=== PATIENT | male | born 1995 | race Caucasian/White ===

== ENCOUNTER 2018-12-09 17:07 | Inpatient (IN) | payer OTHER ==
[~2018-12-09] VITALS: Ht 170.2 cm; Wt 66.0 kg
[2018-12-09 17:11] VITALS: Ht 170.2 cm; Wt 66.0 kg
--- NOTE | 2018-12-09 17:22 | NUR ---
PT BIBA BECAUSE G-TUBE WAS DISLODGED WHILE PATIENT WAS IN PHYSICAL THERAPY. PATIENT IS CURRENTLY AT BEDSIDE IN [facility], BREATHING IS LABORED HE ALSO HAS A TRACH TUBE. LUNG SOUNDS HAS AUDIBLE WHEEZING BILATERALLY. PATIENT REQUESTED A SUCTION, STS HE IS ABLE TO SUCTION MANUALLY. STS HAVING A PAIN OF 3/10 IN THE ABDOMINAL REGION. AWAITING MSE
[2018-12-09] MEDS ORDERED: COLACE100 MG GT (18:04)
[2018-12-09] MEDS ORDERED: PROCTOSOL-HC2.5% TOP (18:05)
[2018-12-09] MEDS ORDERED: APAP500 MG GT (18:05)
[2018-12-09] MEDS ORDERED: ATIVAN0.5 M1 GT (18:06)
[2018-12-09 18:18] LABS: BASOPHIL % 0.3 % (0-2); PLATELET COUNT 310 x10^3mcL (130-400); RED CELL DISTRIBUTION WIDTH 13.1 % (11.5-14.5)
--- NOTE | 2018-12-09 18:32 | NUR ---
PT RESTING AT BEDSIDE IN NAD. RESIDENT AT BEDSIDE
[2018-12-09 18:34] LABS: CARBON DIOXIDE 32.6 mmol/L (21-32); CHLORIDE SERUM 103 mmol/L (98-107); CREATININE SERUM 0.3 mg/dL (0.7-1.3); GFR1 > 60 mL/min; GLUCOSE SERUM 94 mg/dL (74-106); POTASSIUM SERUM 3.9 mmol/L (3.5-5.1); SODIUM SERUM 134 mmol/L (136-145)
--- NOTE | 2018-12-09 18:34 | NUR ---
XRAY AT BEDSIDE
[2018-12-09 18:39] LABS: ALBUMIN 3.6 g/dL (3.4-5.0); ALKALINE PHOSPHATASE 111 U/L (46-116); ALT/SGPT 52 U/L (16-63); AST/SGOT 20 U/L (15-37); BILIRUBIN TOTAL 0.27 mg/dL (0.20-1.00); TOTAL PROTEIN, SERUM 8.1 g/dL (6.4-8.2)
--- NOTE | 2018-12-09 18:40 | NUR ---
REPORT OFF TO AMY ANSARI
[2018-12-09 18:49] LABS: MAGNESIUM 2.1 mg/dL (1.8-2.4); PHOSPHOROUS 3.3 mg/dL (2.5-4.9)
[2018-12-09 19:39] VITALS: BP 127/72
--- NOTE | 2018-12-09 19:56 | NUR ---
PATIENT WAS BEING ADMITTED BY [facility].[place] APPLIED.
--- NOTE | 2018-12-09 20:01 | NUR ---
RECEIVED PT FROM ER. PT ADMIT FOR G TUBE DISLODGED, PT IS A/O X4, VERBAL REPSONSIVE, ABLE TO TELL WHAT HE NEEDS. PT HAS TRACH, PO2 98% IN ROOM AIR. LUNG SOUND DIM JUNIOR, DENY ANY SOB AT THIS TIME BUT PT CONSTANTLY COUGH WITH YELLOW SECRETION. SUCTION AND TRACH CARE PROVIDED. PT IS ON TELE 3, NSR, DENY ANY CHEST PAIN, BOWEL SOUND PRESENT ALL 4 QUADRANTS, NO DISTETNION, LEFT UPPER QUADRANT ABD G TUBE DISLODGED SITE. COVER WITH DRY DRESSING, PEDAL PULSE PRESENT BOTH FEET, NO EDEMA, IV AT LEFT HAND, NO LEAKING, NO INFILTRATION. ALL ADLS ASSIST, ALL NEED MET, CALL LIGHT IN REACH, WILL CONTINUE TO MONITOR.
[2018-12-09 20:35] VITALS: BP 119/78
--- NOTE | 2018-12-09 21:00 | NUR ---
PATIENT SUCTIONED,SCANTY CLEAR SECRETION,HAS TRACH FROM WHERE HE CAME FROM,PATIENT VERBALIZED NEEDS.MAIN REASON HE IS HERE.GT IS CLOGGED.STOMA HAS DRESSING OVER IT.ER NOT ABLE TO REPLACED,SUNIL RUTHERFORD SAYS DR Linda HARP CONSULT.
[2018-12-10] VITALS (7 sets, daily range): BP systolic 107–135; BP diastolic 68–87
--- NOTE | 2018-12-10 02:17 | NUR ---
PATIENT WIDE AWAKE,REMINDED HE CAN TURN OFF TV/LIGHT.ATIVAN 0.5 MG GIVEN WITH LITTEL WATER.
--- NOTE | 2018-12-10 06:14 | NUR ---
PATIENT RHYTHM.AFIB/FLUTTER ON TELE,PITER NOTIFIED DR BARBER.WILL ORDER EKG.
[2018-12-10 06:15] LABS: BASOPHIL % 0.6 % (0-2); PLATELET COUNT 251 x10^3mcL (130-400); RED CELL DISTRIBUTION WIDTH 12.8 % (11.5-14.5)
--- NOTE | 2018-12-10 06:19 | NUR ---
PATIENT STILL NEED UA,BUTTON INSPECTOR DUMPED IT TWICED.IVF INFUSING.WILL ENDORSE TO NEXT SHIFT.
[2018-12-10 06:44] LABS: CALCIUM 9.7 mg/dL (8.5-10.1); CARBON DIOXIDE 30.8 mmol/L (21-32); CHLORIDE SERUM 106 mmol/L (98-107); CREATININE SERUM 0.4 mg/dL (0.7-1.3); GFR1 > 60 mL/min; GLUCOSE SERUM 87 mg/dL (74-106); POTASSIUM SERUM 3.6 mmol/L (3.5-5.1); SODIUM SERUM 144 mmol/L (136-145)
--- NOTE | 2018-12-10 07:12 | NUR ---
RECEIVED PATIENT FROM OFFSET MACHINE OPERATOR NURSE. PATIENT IS AWAKE AND ALERT, DROWSY. TELE#3, SR, HR 77, DENIES CHEST PAIN. PER OFFSET MACHINE OPERATOR NURSE PATIENT HAD EPISODE OF A-FIB/FLUTTER: EKG READS SR. PATIENT HAS TRACHEOSTOMY, NICOLE. DRESSING CDI. SHILEY 6 AT BEDSIDE. SUCTION AT BEDSIDE. PER OFFSET MACHINE OPERATOR NURSE. PATIENT IS ABLE TO SELF SUCTION. RT PROTOCOL, WILL MONITOR. WALKER AT BEDSIDE, FALL PREC IN PLACE. G-TUBE SITE DRESSING CDI: PATIENT ADMITTED FOR DISLODGED G-TUBE. IV NOTED TO , IVF INFUSING WELL ORDERED, NO S/S REDNESS OR EDEMA AT SITE. CALL LIGHT WITHIN EASY REACH. WILL CONTINUE PLAN OF CARE.
[2018-12-10 11:45] LABS: microscopic required? NO
--- NOTE | 2018-12-10 12:03 | NUR ---
PATIENT TAKEN DOWN TO GI LAB AT THIS TIME.
[2018-12-10 12:06] LABS: UA SPECIFIC GRAVITY 1.025 (1.005-1.035); urine erythrocyte NEGATIVE (NEGATIVE)
--- NOTE | 2018-12-10 14:00 | NUR ---
PT BACK FROM PROCEDURE. AA/OX4. NO S/S OF ACUTE DISTRESS. NO SOB ON ROOM AIR. O2 SAT 97%. RR EVEN/UNLABORED. TRACH IN PLACE. VS STABLE. DRESSING TO ABD. CDI. NO CHEST PAIN. NO N/V. BED IN LOW POSITION. CALL LIGHT WITHIN REACH. WILL ENDORSE TO PRIMARY RN.
--- NOTE | 2018-12-10 14:51 | NUR ---
1. Recommend continuing NPO per MD orders. 2. Once new Gtube is in place, restart TF Vital AF 1.2 at 70ml/hr (goal rate x 24 hrs) FWF 160ml Q6H via GT. EN regimen will provide: 2016 kcal, 126 gm protein and 2002 ml free water daily. Which will meet: 102% of upper end of estimated calorie needs and 159% of upper end of estimated protein needs. RD rec endorsed to AMY Hodgson.
--- NOTE | 2018-12-10 14:51 | NUR ---
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 PSHx: Tracheostomy., Left ankle fracture surgical repair. Labs: 12/10 CRE 0.4 L, RBC 3.97 L, H/H 12.5 L/36 L Meds: colace, NaCl IV, zofran, Nutrition Support: NPO Residuals: none I and O: 12/10 1000/250 +750ml, IV total intake 800ml per 24 hrs. Ht: 5'7 Wt: 146 lb, 66 kg BMI: 22.8 kg/m2 (normal) IBW: 148 lb, 67 kg %IBW: 99 UBW: Age: 23 yrs old/Male Food Allergies: Skin: L upper abd, GT site dislodged. Moises: 21 Edema: none GI: no GI distention/discomfort, bowel sounds active. Last BM 12/08/18, formed Trigger received for EN support and appears underweight/malnourished. Per H&P, with PMH of West Nile fever and chronic respiratory failure was admitted with cc of dislodged G-tube. Pt is a resident of [facility] where he is currently undergoing PT. During regular PT session PT specialist applied belt over his stomach to assist with ambulation when belt came in close contact with G-tube and dislodged it. At [facility] they tried to place the tube back in but failed to do so and brought pt to the hospital. Pt is ambulating with walker, tracheostomy due to chronic respiratory failure, pt stated that he used to be ventilator-dependent but was taken of ventilation 3 weeks ago and only requires intermittent trach suction now. 12/10 MD notes: Patient will likely stay until tomorrow to ensure that the G tube is able to be used. Pt seen, +trach. Per RN, s/p PEG placement. Per hard chart review, pt receives TF in [facility]: Vital AF 1.2 at 95ml/hr x 20 hrs, FWF 250ml Q8H via GT. Per bed huddle discussion w/ Dr. Tacos RD to provide same formula as SNF. Problem with: N: no V: no D: no C: no Problems with: Chewing: yes Swallowing: yes Current appetite: n/a Recent wt change: none %wt change: n/a Vitamin/Supplement use: colace Special diet at home: TF Vital AF 1.2 at 95ml/hr x 20 hrs. Physical activity: none Education: is not provided during this visit. Estimated Nutritional Needs Based on actual body weight 66 kg Energy: 3455-1570 kcal/d (25-30 kcal/kg for maintenance) Protein: 66-79 g/d (1-1.2g/kg for maintenance) Fluid: 1956-2033 ml/d (1 ml/kcal) or per doctor Nutrition Diagnosis 1. Inadequate EN intake r/t GT malfunction AEB need for new GT placement and NPO status. Intervention 1. Recommend continuing NPO per MD orders. 2. Once new Gtube is in place and medically appropriate , restart TF Vital AF 1.2 at 70ml/hr (goal rate x 24 hrs) FWF 160ml Q6H via GT. EN regimen will provide: 2016 kcal, 126 gm protein and 2002 ml free water daily. Which will meet: 102% of upper end of estimated calorie needs and 159% of upper end of estimated protein needs. Monitor/Evaluate Goal: TF intake at least 75% estimated needs Monitor: TF tolerance, Labs, GI function, weights F/U in 2-3 days as high risk 12/12-12/13
--- NOTE | 2018-12-10 15:28 | NUR ---
PER DR HARP PATIENT OKAY TO START ON TUBE FEEDING AT THIS TIME. DR JORGENSEN NOTIFIED AND TO ADD ORDER FOR TUBE FEEDING. WILL FOLLOW UP.
--- NOTE | 2018-12-10 15:42 | NUR ---
PATIENT C/O PAIN AT G-TUBE SITE. DR FRIAS NOTIFIED. WILL FOLLOW UP.
--- NOTE | 2018-12-10 17:40 | NUR ---
G-TUBE SITE ASSESSED. PATENT AND FLUSHING WELL. TUBE FEEDING STARTED AT THIS TIME ORDERED. WILL CONTINUE TO MONITOR.
--- NOTE | 2018-12-10 19:05 | NUR ---
PATIENT RESTING IN BED PEACEFULLY WITH NO C/O PAIN OR DISCOMFORT. TUBE FEEDING INFUSING WELL ORDERED, SITE CLEAR. IVF INFUSING WELL TO LEFT HAND, NO S/S REDNESS OR EDEMA. SHILEY 6 REMAINS AT BEDSIDE. PATIENTS TRACH INTACT. SUCTION AT BEDSIDE. WILL ENDORSE PATIENT CARE TO FURNACE COOLER NURSE.
--- NOTE | 2018-12-10 19:20 | NUR ---
REC'D REPORT FROM MARIBEL RN TO ASSUME CARE. PT IS A/O X4, TRACH'D, ABLE TO FOLLOW COMMANDS AND COMMUNICATE WITH HAND GESTURES AND MOUTHING WORDS. PERRLA NOTED. ABLE TO MAKE NEEDS KNOWN. NO ACUTE DISTRESS NOTED. DENIES ANY SOB, RESPS E/U ON ROOM AIR. LUNG SOUNDS CTA. DIE OUT WORKER IN PLACE SHOWING NSR. DENIES ANY CP, SYNCOPE, OR DIZZINESS. ABD FLAT, SOFT, NONTENDER TO TOUCH. BOWEL SOUNDS ACTIVE. PEG TUBE TO LUQ INTACT AND SECURED, DSG CDI. VITAL AF INFUSING @ 30ML/HR FWF 160ML Q6H, GRV=5ML REPLACED. SKIN WARM DRY TO TOUCH. IV TO RFA G20 INTACT AND PATENT, NS INFUSING @ 100 ML/HR. NO S/SX OF INFILTRATION NOTED. VOIDS FREELY WITH URINAL. GEN WEAKNESS NOTED. ABLE TO MOVE ALL EXT WITHOUT ANY LIMITATIONS. ALL NEEDS MET AT THIS TIME. WILL CONTINUE TO MONITOR.
--- NOTE | 2018-12-10 19:30 | NUR ---
REC'D REPORT FROM MARIBEL RN TO ASSUME CARE. PT IS A/O X4, TRACH'D, ABLE TO FOLLOW COMMANDS AND VERBALIZE NEEDS. PERRLA NOTED. ABLE TO MAKE NEEDS KNOWN. NO ACUTE DISTRESS NOTED. DENIES ANY SOB, RESPS E/U ON ROOM AIR. LUNG SOUNDS CTA. POWER CRANE OPERATOR IN PLACE SHOWING NSR. DENIES ANY CP, SYNCOPE, OR DIZZINESS. ABD FLAT, SOFT, NONTENDER TO TOUCH. BOWEL SOUNDS ACTIVE. PEG TUBE TO LUQ INTACT AND SECURED, DSG CDI. VITAL AF INFUSING @ 30ML/HR FWF 160ML Q6H, GRV=5ML REPLACED. SKIN WARM DRY TO TOUCH. IV TO RFA G20 INTACT AND PATENT, NS INFUSING @ 100 ML/HR. NO S/SX OF INFILTRATION NOTED. VOIDS FREELY WITH URINAL. GEN WEAKNESS NOTED. ABLE TO MOVE ALL EXT WITHOUT ANY LIMITATIONS. ALL NEEDS MET AT THIS TIME. WILL CONTINUE TO MONITOR.
--- NOTE | 2018-12-10 20:30 | NUR ---
PT WITH C/O 04/27 PAIN, MEDICATED WITH NORCO PRN VIA GTUBE. WILL MONITOR FOR EFFECTIVENESS.
--- NOTE | 2018-12-10 21:00 | NUR ---
TF INCREASED TO 40ML/HR, GRV=5ML.
--- NOTE | 2018-12-10 21:30 | NUR ---
PT STATES FEELING REFLIEF FROM PAIN MEDICATION 2/10 AT THIS TIME.
--- NOTE | 2018-12-10 23:30 | NUR ---
PT C/O INSOMINA, MEDICATED WITH ATIVAN VIA PEG. WILL MONITOR FOR EFFECTIVENESS.
--- NOTE | 2018-12-11 01:00 | NUR ---
TF INCREASED TO 50ML/HR, GRV=15ML, REPLACED.
--- NOTE | 2018-12-11 04:50 | NUR ---
RECIEVED PATIENT FROM BRYCE REYES. PATIENT AOX4. PATIENT CALM AND COOPERATIVE. PATIENT TRACH'D. PATIENT APPEARS SLEEPING. PATIENT EASILY AROUSED. PATIENT ABLE TO FOLLOW COMMANDS. PATIENT RR EVEN AND UNLABORED, PATIENT ABLE TO SUCTION SELF. NO ACUTE DISTRESS AT THIS TIME. IVF NS AT 100ML/HR INFUSING VIA LEFT HAND, SITE CLEAR. ON G-TUBE FEEDING, VITAL AT 40ML/HR, CRISTAL WELL. NO RESIDUAL NOTED AT THIS TIME. PATIENT DENIES PAIN AT THIS TIME. CALL LIGHT WITHIN REACH. BED IN LOW POSITION. WILL CONTIMNUE TO MONITOR.
[2018-12-11 05:56] VITALS: BP 143/80
--- NOTE | 2018-12-11 06:08 | NUR ---
NO COMPLAINTS NOTED AT THIS TIME. CRISTAL. GT FEEDING WELL. NO N/V NOTED. NO RESIDUAL NOTED. IVF INTACT AND INFUSING WELL, SITE CLEAR. AFEBRILE AND VITAL SIGNS STABLE. SR ON THE MONITOR, DENIES CHEST PAIN OR ANY DISCOMFORT.WITH TRACH MARIANALEY #6, SITE DRESSING CLEAN AND DRY. ABLE TO SUCTION SELF. VOIDING FREELY VIA URINAL. CALL LIGHT WITHIN REACH. WILL CONTINUE TO MONITOR.
--- NOTE | 2018-12-11 07:12 | NUR ---
RECEIVED PATIENT FROM CALL CENTER ANALYST NURSE. PATIENT IS AWAKE, ALERT AND ORIENTED. TELE#3, SR, HR 85, DENIES CHEST PAIN. ON ROOM AIR, BREATHING EVEN AND UNLABORED. TRACH NOTED WITH DRESSING INTACT, NICOLE, SUCTION AT BEDSIDE. SHILEY 6 AT BEDSIDE. PEG TUBE NOTED TO LUQ, TUBE FEEDING INFUSING WELL AT 50CC/HR WITH 160ML FWF Q6H, SITE CLEAR. OLD PEG SITE NOTED AND DRESSING CDI. IV NOTED TO LEFT HAND, INF INFUSING WELL ORDDERED, NO S/S REDNESS OR EDEMA AT SITE. CALL LIGHT WITHIN EASY REACH. ASPIRATION, SAFETY AND FALL PRECAUTIONS IN PLACE. WILL CONTINUE PLAN OF CARE.
[2018-12-11 07:32] LABS: BASOPHIL % 0.2 % (0-2); PLATELET COUNT 236 x10^3mcL (130-400); RED CELL DISTRIBUTION WIDTH 12.6 % (11.5-14.5)
--- NOTE | 2018-12-11 07:59 | NUR ---
TUBE FEEDING ADVANCED TO 60ML/HR. RESIDUAL: <5ML, TOLERATED WELL.
[2018-12-11 08:02] VITALS: BP 124/78
[2018-12-11 08:03] LABS: CALCIUM 9.1 mg/dL (8.5-10.1); CARBON DIOXIDE 29.5 mmol/L (21-32); CHLORIDE SERUM 107 mmol/L (98-107); CREATININE SERUM 0.3 mg/dL (0.7-1.3); GFR1 > 60 mL/min; GLUCOSE SERUM 94 mg/dL (74-106); MAGNESIUM 1.9 mg/dL (1.8-2.4); PHOSPHOROUS 3.3 mg/dL (2.5-4.9); POTASSIUM SERUM 3.5 mmol/L (3.5-5.1); SODIUM SERUM 144 mmol/L (136-145)
[2018-12-11 09:35] VITALS: BP 124/78
--- NOTE | 2018-12-11 11:32 | NUR ---
PATIENT C/O RIGHT SCROTAL PAIN. SCROTUM ASSESSED AT THIS TIME NO EDEMA OR REDNESS PRESENT. PATIENT REPOSITIONED WITH NO RELIEF IN SYMPTOMS. LORENZO BAÑUELOS NOTIFIED AT THIS TIME. US OF SCROTUM TO BE ORDERED. WILL FOLLOW UP.
--- NOTE | 2018-12-11 12:10 | NUR ---
TUBE FEEDING ADVANCED AT THIS TIME TO 70ML/HR. RESIDUAL: <5CC TOLERATING WELL.
[2018-12-11 12:16] VITALS: BP 131/86
--- NOTE | 2018-12-11 12:42 | NUR ---
US AT BEDSIDE.
[2018-12-11] MEDS ORDERED: NORCO1 TA2 PO (14:19)
--- NOTE | 2018-12-11 15:19 | NUR ---
[facility] HERE AT THIS TIME TO TRANSPORT PATIENT BACK TO [facility]. PATIENT IS AWAKE, ALERT AND ORIENTED. DENIES PAIN AT THIS TIME. VS STABLE AT TIME OF DC. PATIENT HAS NEW PEG TUBE SITE, FREE OF REDNESS AND DRAINAGE. OLD PEG TUBE SITE INTACT WITH NO DRAINAGE NOTED. PATIENT TRACH DRESSING, CDI. PICTURES IN CHART. TELE REMOVED. IV REMOVED AND CATHETER TIP INTACT. PATIENT GIVEN ALL DC INSTRUCTIONS, ALL QUESTIONS ANSWERED AT TIME OF DC. ALL NEW PRESCRIPTIONS GIVEN TO PATIENT. ALL PERSONAL BELONGINGS TAKEN WITH PATIENT.
== END 2018-12-11 15:15 | DRG 252 ==
LOC: ED 17:07 → DU 18:15 → MU 18:15 → DU 12-10 06:10
PROVIDERS: Emergency Medicine; Internal Medicine Gastroenterology; ADMIT Internal Medicine
PROC: 0DH63UZ Insertion of Feeding Device into Stomach, Percutaneous Approach (ICD-10-PCS; principal; 2018-12-10 12:30)
DX: K94.23 Gastrostomy malfunction (principal); N17.0 Acute kidney failure with tubular necrosis; J96.10 Chronic respiratory failure, unspecified whether with hypoxia or hypercapnia; Z93.0 Tracheostomy status; E87.0 Hyperosmolality and hypernatremia; E87.1 Hypo-osmolality and hyponatremia; Y83.3 Surgical operation with formation of external stoma as the cause of abnormal reaction of the patient, or of later complication, without mention of misadventure at the time of the procedure; E86.1 Hypovolemia; Z68.23 Body mass index [BMI] 23.0-23.9, adult; Y92.128 Other place in nursing home as the place of occurrence of the external cause
CPT/HCPCS: 43235; J0690; J1200; J1610; J2250; J2310; J3010; J3490; J7030; Q0092